=== PATIENT | female | born 1990 | race Caucasian/White ===

== ENCOUNTER 2018-01-06 13:40 | Emergency (ER) | payer MEDICAID, OTHER ==
[~2018-01-06] VITALS: Ht 172.7 cm; Wt 104.0 kg
[2018-01-06 13:46] VITALS: BP 154/111
[2018-01-06] MEDS ORDERED: ORPH100T2 PO (13:59)
[2018-01-06] MEDS ORDERED: IBUP-1984 PO (13:59)
[2018-01-06] MEDS ORDERED: HYDR-569 PO (13:59)
== END 2018-01-06 14:16 | disposition home or self-care (01) ==
LOC: ER 13:40
DX: S16.1XXA Strain of muscle, fascia and tendon at neck level, initial encounter (principal); Z88.2 Allergy status to sulfonamides; Z79.899 Other long term (current) drug therapy; V49.88XA Car occupant (driver) (passenger) injured in other specified transport accidents, initial encounter; Y93.89 Activity, other specified; Y92.410 Unspecified street and highway as the place of occurrence of the external cause; Y99.8 Other external cause status
CPT/HCPCS: 99283